=== PATIENT | female | born 2000 | race African-American/Black ===

== ENCOUNTER 2020-08-15 11:05 | Emergency (ER) | payer SELFPAY ==
[~2020-08-15] VITALS: Ht 162.6 cm; Wt 61.4 kg
[2020-08-15] MEDS ORDERED: METHOCARBAMOL 500 MG TABLET PO ONE (11:45)
[2020-08-15] MEDS ORDERED: LIDOCAINE 5% TRANSDERMAL PATCH TD ONE (11:45)
[2020-08-15] MEDS ORDERED: IBUPROFEN 600 MG TABLET PO ONE (11:45)
[2020-08-15 12:30] VITALS: BP 115/68
== END 2020-08-15 13:08 | disposition home or self-care (01) ==
LOC: EMS 11:11
DX: M54.2 Cervicalgia (principal); M54.9 Dorsalgia, unspecified; V43.52XA Car driver injured in collision with other type car in traffic accident, initial encounter; Y93.89 Activity, other specified; Y92.89 Other specified places as the place of occurrence of the external cause; Y99.8 Other external cause status
CPT/HCPCS: 72040; 72100; Z7502; Z7610